=== PATIENT | female | born 1950 | race African-American/Black ===

== ENCOUNTER → 2017-01-07 | Outpatient (CLI) | payer MEDICARE ==
--- NOTE | 2017-01-07 16:13 | RADRPT ---
PROCEDURE: XR Right hip and pelvis. CLINICAL INDICATION: Right hip pain. Pelvic pain. TECHNIQUE: Two views. Frontal pelvis and lateral right hip. COMPARISON: No prior studies are available for comparison. FINDINGS: There is no fracture or dislocation. The soft tissues are normal. There are mild degenerative changes of both hips with small osteophytes noted. There is no joint space narrowing. There is no lytic or blastic lesion. The sacroiliac joints are grossly normal. IMPRESSION: 1. Mild degenerative changes of both hips. 2. Otherwise unremarkable images of the right hip and pelvis. RPTAT: QQ .Pascual Topete MD, MD Date Time Electronically viewed and signed by .Pascual Topete MD, on 01/07/2017 16:13 .R/
--- NOTE | 2017-01-08 00:46 | HKNOTE ---
DATE OF SERVICE: 01/07/2017 MAIN COMPLAINT: Pain in the right hip. HISTORY OF MAIN COMPLAINT: The patient is a 67-year-old female, who complains of pain which has bee n in her right hip now for about 4 weeks. The main pain is in her right buttocks. Secondarily, she gets pain in the right groin as well. The patient lives in the [facility]. She saw a "george acosta specialist" in the [facility]. He put her on Voltaren, which helped a great deal, and w percy 3 days she was practically free of pain. Yesterday she saw a "truck greaser" who diagnosed he r right hip pain by feeling and massaging her feet. PRESENT COMPLAINTS: The pain in the right hip is occasionally quite severe, mostly it is mild to mo derate. Pain is aggravated by walking, weightbearing, and stair climbing. She takes ibuprofen and Prilosec for the pain. Pain is present at rest and she also gets pain at night. The ibuprofen help s "a little." She has had Voltaren patches. That helps somewhat. She does not have any back pain, no numbness or tingling in her legs. No radiation of pain down her legs. She is not able to walk more than perhaps a half a block without stopping. She limps all the time. She does not have a shoe lift. She can clip her toenails and tie her shoel aces. SPORTING ACTIVITIES: Anaerobic dancing. PAST ORTHOPEDIC HISTORY: PREVIOUS ORTHOPEDIC OPERATIONS: None. PRIOR CORTISONE INTAKE BY INJECTION OR BY MOUTH: None. ALCOHOL INTAKE: None. OTHER JOINT PROBLEMS: None. BLOOD TESTS FOR ARTHRITIS: None. WORK STATUS: The patient has been working in "[employer]" for 30 years bowing onto the floor, a nd mostly to the right hip, when she is doing, and particularly strenuous dance. WORK STATUS: The patient is a retired dancer. She stays at home. She lives on the second floor of an apartment and has no elevator. PAST MEDICAL HISTORY: 1. Hypertension, controlled with diet and exercise. 2. Hypercholesterolemia. 3. Diverticulitis. PAST SURGICAL HISTORY: 1. section in 1983. 2. Abdominoplasty in 1989. 3. in 1989. MEDICAL ALLERGIES: NONE. MEDICATIONS: Motrin 800 mg a day by mouth. FAMILY HISTORY: Father at 61 of heart problems. Mother at present is 82 and has a history of cancer and diabetes, as well as heart problems. SYSTEMS REVIEW: Age-related failing vision, varicose veins, gait disturbance, hypertension, otherwi se entirely negative. HABITS: Patient does not smoke or drink alcoholic beverages. Note, the patient recently had an ultrasound of her thyroid due to hair loss. PHYSICAL EXAMINATION GENERAL: The patient is a fit-looking 67-year-old female. She walks without a walking aid. Her ga it is normal. VITAL SIGNS: Height 5 feet 2 inches, weight 126 pounds, blood pressure 170/85, temperature 98.8. BACK: Dynamic pain assessment reveals a pain free range of motion in flexion, extension, lateral be nding, and rotation. Inspection of the spine reveals there is no lumbar paraspinal muscle spasm. The pelvis is level. Facet stress test is negative bilaterally. Palpation of the spine demonstrates no tenderness of the spinous processes, facet joints, sacroiliac joint, sciatic notch, or posterior thi gh. NEUROLOGIC: Motor examination reveals no muscle deficit in the lower extremities. Right knee jerk +, left knee jerk +, right ankle jerk +, left ankle jerk +. Straight leg raising is negative bilater ally at 80 degrees. Lasegue and TASIA tests are negative. HIPS: Both hips have a full range of motion without pain. Has minimal tenderness over the right gr eater trochanter. RIGHT KNEE: The right knee shows normal alignment. Active and passive extension is 0 degrees. Activ e and passive flexion is 135 degrees. The medial and lateral collateral ligaments and cruciate ligam ents are intact. Aletha test is negative. There is no effusion, tenderness, scarring, crepitus, or cysts. The patella tracks normally. There is no tenderness on the articular surface of the patella o r in the patellar groove. The Q angle is normal. LEFT KNEE: The left knee shows normal alignment. Active and passive extension is 0 degrees. Active and passive flexion is 135 degrees. The medial and lateral collateral ligaments and cruciate ligamen ts are intact. Aletha test is negative. There is no effusion, tenderness, scarring, crepitus, or cy sts. The patella tracks normally. There is no tenderness on the articular surface of the patella or in the patellar groove. The Q angle is normal. IMAGING: Plain x-rays of her pelvis and hips obtained today at the [facility] were reviewed. These show minimal narrowing of both hip joint spaces and minimal degenerative osteoarth ritis of both hips. The hip x-rays are otherwise entirely normal. MANAGEMENT: No clear diagnosis is being made here. The patient is being sent for an MRI scan of the right hip and will be seen again after for reevalua tion. Dictated By: KARYN NAGEL/CARLYLE Conf#: [id number] DID#: [id number]
== END | disposition home or self-care (01) ==
LOC: HKI 14:19
DX: M25.551 Pain in right hip (principal); I10 Essential (primary) hypertension; E78.00 Pure hypercholesterolemia, unspecified
CPT/HCPCS: 73502; G0463